=== PATIENT | female | born 1995 | race Caucasian/White ===

== ENCOUNTER 2022-03-30 04:34 | Inpatient (IN) ==
[2022-03-30] MEDS ORDERED: OXYTOCIN 30 UNITS/500 ML BAG IV PRN ×3 (05:05→14:42)
[2022-03-30 05:43] LABS: Hematocrit (blood only) 33.8 % (37-47); Hemoglobin 10.9 g/dL (12.0-16.0); Mean Corpuscular Hemoglobin 28.5 pg (25-34); Mean Corpuscular Hgb Conc 32.2 g/dL (32-36); Mean Corpuscular Volume 88.3 fL (80-100); Mean Platelet Volume 12.2 fL (7.4-10.4); Platelet Count 166 K/uL (130-400); RDW Coefficient of Variation 14.3 % (11.5-14.5); RDW Standard Deviation 46.1 fL (36.4-46.3); Red Blood Count 3.83 M/uL (4.2-5.4); White Blood Count 9.23 K/uL (4.8-10.8)
[2022-03-30] MEDS: LACTATED RINGER'S 1,000 ML IV PRN ×3 (05:51→11:52)
[2022-03-30] MEDS ORDERED: ePHEDrine sulfate 50 MG/ML AMP ONE (06:45)
[2022-03-30] MEDS ORDERED: SODIUM CHLORIDE 0.9% INJ 10 ML VIAL ONE (06:46)
[2022-03-30] MEDS ORDERED: BUPIVACAINE 0.25% 30 ML VIAL ONE (06:46)
[2022-03-30] MEDS ORDERED: fentaNYL 2MCG/ML ROPIVACAINE 1.25MG/ML 100 ML BAG EPI ONE (06:46)
[2022-03-30] MEDS ORDERED: fentaNYL citrate 100 MCG/2 ML VIAL ONE (06:46)
[2022-03-30] MEDS ORDERED: NALBUPHINE HCL INJ 10 MG/ML AMP IV PRN (06:59)
[2022-03-30] MEDS ORDERED: ePHEDrine sulfate 50 MG/ML AMP IV PRN (06:59)
[2022-03-30] MEDS ORDERED: NALOXONE HCL 1 MG in SODIUM CHLORIDE 0.9% 1000ML 1,000 ML IV PRN (06:59)
[2022-03-30] MEDS ORDERED: fentaNYL 2MCG/ML ROPIVACAINE 1.25MG/ML 100 ML BAG EPI PRN (06:59)
[2022-03-30] MEDS ORDERED: NALOXONE HCL 0.4 MG/1 ML VIAL/CARP IV PRN (06:59)
[2022-03-30] MEDS ORDERED: diphenhydrAMINE 50 MG/ML VIAL IV PRN (06:59)
[2022-03-30] MEDS ORDERED: ONDANSETRON INJ 2 MG/ML 2 ML VIAL IV PRN (06:59)
--- NOTE | 2022-03-30 07:01 | Anesthesiology Consultation ---
Date of Service March 30, 2022 Assessment & Plan (1) Encounter for pre-operative examination: Chart Review Chart Review: Patient NOT seen in Pre Admission Testing and Acceptable Risk for Labor Epidural Consults Requested none History Height/Weight Height: 5 ft 9 in Weight: 87.997 kg Allergies Allergy/AdvReac Type Severity Reaction Status Date / Time No Known Allergies Allergy Verified 03/29/22 11:32 Medications Home Medications Medication Instructions Recorded Confirmed Last Taken Saccharomyces boulardii [Daily PO 12/11/20 03/29/22 Unknown Probiotic (S. boulardii)] biotin PO 12/11/20 03/29/22 Unknown cyanocobalamin (vitamin B-12) PO 12/11/20 03/29/22 Unknown ferrous sulfate PO 12/11/20 03/29/22 Unknown garlic PO 12/11/20 03/29/22 Unknown defwig90-tgtf fum-folic ac-om3 PO 12/11/20 03/29/22 Unknown [Daily ] Active Medications Generic Name Dose Route Start Last Admin Trade Name Freq PRN Reason Stop Dose Admin Oxytocin 30 units in 500 mls @ 3 mls/hr 03/30/22 05:05 03/30/22 06:30 Pitocin IV 04/01/22 05:04 0.18 units/hr .Q24H PRN 3 mls/hr Labor Induction/Augmentation Titration Protocol 0.18 UNITS/HR Lactated Ringer's 1,000 mls @ 125 mls/hr 03/30/22 05:05 03/30/22 06:30 Lr IV 04/01/22 05:04 999 mls/hr .Q8H PRN Infusion L&D Protocol Protocol Past Medical History Medical History (Updated 03/30/22 @ 07:01 by Billy Lay MD) Encounter for gynecological examination without abnormal finding Exercise / Class Metabolic Activity II 4-5 Yardwork/Stairs/Walk up hill Past Family History Family History Grandmother Breast cancer maternal great grandmother Denies family history of Ovarian cancer Prostate cancer Colorectal cancer Uterine cancer Past Surgical History Surgical History H/O laparoscopy diagnostic Hx of cholecystectomy Hx of colonoscopy S/P wisdom tooth extraction Past Anesthesia History No Hx of Anesthesia Complications and No Family Hx of Anesthesia Complications History of PONV No Hx of PONV and No Hx of Motion Sickness Social History Smoking Status: Never smoker Do You Dip or Chew Tobacco: No Hx Alcohol Use: No Hx Substance Use: No substance use type: does not use Physical Exam Vital Signs Last Vital Signs Temp 36.8 C 03/30/22 05:11 Pulse 71 03/30/22 06:04 Resp 16 03/30/22 05:15 BP 123/85 03/30/22 06:04 Testing Laboratory Results 03/30/22 05:25
--- NOTE | 2022-03-30 07:23 | History & Physical Report ---
Date of Service March 30, 2022 Assessment & Plan (1) Post-dates : (2) PROM (premature rupture of membranes): Plan: Pt has been admitted. Pitocin infusing, now with epidural and getting more comfortable. fhts categ 1. will reeval cx when she is comfortable. Admission and Anticipated Discharge Date Admission Date: March 30, 2022 History of Present Illness Chief Complaint: leaking clear fluid since 3am Primary Care Provider: Cornell Johnson 26yo at 41+wks ega presents to L&D with leaking fluid, no significant ctx. Gross srom on arrival. Cx 2cm. +FM. No vb or regular ctx. Counseled to start pitocin but wanted to walk first. Just got her epidural, and waiting to feel more comfortable. PNC uncomplicated. PNL rh pos, ri, gbs neg, covid test neg OBH: g1 GYNH: nl paps Allergies Allergy/AdvReac Type Severity Reaction Status Date / Time No Known Allergies Allergy Verified 03/29/22 11:32 Home Medications Medication Instructions Recorded Confirmed Type Saccharomyces boulardii [Daily PO 12/11/20 03/29/22 History Probiotic (S. boulardii)] biotin PO 12/11/20 03/29/22 History cyanocobalamin (vitamin B-12) PO 12/11/20 03/29/22 History ferrous sulfate PO 12/11/20 03/29/22 History garlic PO 12/11/20 03/29/22 History osdeyt61-ydfi fum-folic ac-om3 PO 12/11/20 03/29/22 History [Daily ] prenat.vits,justen,xjb-tayv-zeoqq 1 tab PO DAILY 03/30/22 03/30/22 History Patient History Medical History (Updated 03/30/22 @ 07:23 by Marie Davidson MD, FACOG) Encounter for gynecological examination without abnormal finding Surgical History H/O laparoscopy diagnostic Hx of cholecystectomy Hx of colonoscopy S/P wisdom tooth extraction Family History Grandmother Breast cancer maternal great grandmother Denies family history of Ovarian cancer Prostate cancer Colorectal cancer Uterine cancer Social History (Updated 08/05/21 @ 13:22 by Blanca Evans RN) Smoking Status: Never smoker Second Hand Exposure: No; Do You Dip or Chew Tobacco: No; Tobacco Cessation Education Requested by Patient: No Hx Alcohol Use: No Hx Substance Use: No Preferred Language: Greenlandic Communication Ability: Effective Visual Impairment: No Limitations Hearing Ability: Normal Development Executive Required: No Beliefs That Will Affect Care: None marital status: marital status details: Anderson Reese (40) [phone] cell [phone] ext 1200 [place] Current Living Situation: Spouse Current Living Situation Comment: Lives with and 2 dogs current occupational status: employed 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 Other Information That Helps Us Care for You: No Feels Safe at Home: Yes Safety Concerns: Feels Safe At This Time Assistive Devices: None Review of Systems as per Subjective / HPI Physical Exam Constitutional: WD/WN, vitals as above Respiratory: normal respiratory effort, lungs clear to auscultation Cardiovascular: Rate/Rhythm: regular rate and regular rhythm Gastrointestinal (Abdomen): soft gravid nt efw 7-8# Musculoskeletal: no edema nontender calves Neurologic: grossly normal Psychiatric: A+Ox3, euthymic affect Genitourinary: OB Exam Monitor Tracing: + external FHT monitor used, + external uterine monitor used (q2 pit at 3), + category I and + normal FHT variability Results & Data ([facility]) Vital Signs (Past 12 Hours) Vital Signs Temp Pulse Resp BP Pulse Ox 03/30/22 07:16 80 100 03/30/22 07:11 83 100 03/30/22 07:06 81 100 03/30/22 06:04 71 123/85 03/30/22 05:15 16 03/30/22 05:11 98.3 F 71 16 124/77 03/30/22 04:57 71 124/77 Coding Level of Care Code None Diagnoses Post-dates O48.0 PROM (premature rupture of membranes) O42.90
[2022-03-30] MEDS ORDERED: NURSING L&D Epidural Breakthrough Pain Update ONE (08:14)
--- NOTE | 2022-03-30 13:11 | Labor Progress Brief Note ---
Date of Service March 30, 2022 Subjective Comfortable w/ epidural, some right sided pain w/ ctx Assessment & Plan (1) Post-dates : (2) PROM (premature rupture of membranes): Plan: 26 yo G1 at 41 1/7 wga admitted w/ prom vss fetus cat 1 labor - complete, will try some pushes to see if effective, if not can labor down gbs neg epidural in place Admission and Anticipated Discharge Date Admission Date: March 30, 2022 Physical Exam Genitourinary: Manual OB Exam: + cervical dilation 10 cm, + cervical effacement 100% and + station + 2 OB Exam Monitor Tracing: + external FHT monitor used, + external uterine monitor used and + category I Results & Data ([facility]) Vital Signs (Past 12 Hours) Vital Signs Temp Pulse Resp BP Pulse Ox 03/30/22 13:06 91 H 87 L 03/30/22 13:04 88 89 L 03/30/22 13:01 88 98 03/30/22 12:58 101 H 90 03/30/22 12:56 81 78 L 03/30/22 12:52 86 87 L 03/30/22 12:51 85 97 03/30/22 12:50 94 H 139/73 03/30/22 12:46 92 H 94 03/30/22 12:42 92 H 92 03/30/22 12:41 93 H 97 03/30/22 12:38 98.8 F 18 03/30/22 12:36 85 76 L 03/30/22 12:31 97 H 95 03/30/22 12:30 87 84 L 03/30/22 12:26 83 98 03/30/22 12:23 98 H 92 03/30/22 12:21 88 131/80 98 03/30/22 12:16 80 96 03/30/22 12:11 74 98 03/30/22 12:06 75 96 03/30/22 12:01 72 98 03/30/22 11:56 80 97 03/30/22 11:51 86 97 03/30/22 11:50 88 108/61 03/30/22 11:46 84 97 03/30/22 11:42 75 94 03/30/22 11:41 72 95 03/30/22 11:37 73 94 03/30/22 11:36 75 94 03/30/22 11:32 75 94 03/30/22 11:31 74 95 03/30/22 11:27 76 94 03/30/22 11:26 72 95 05 11:21 74 100/56 L 94 03/30/22 11:16 71 95 03/30/22 11:11 72 96 03/30/22 11:06 86 97 03/30/22 11:01 73 96 03/30/22 10:56 75 97 03/30/22 10:51 76 97 03/30/22 10:50 75 120/58 L 03/30/22 10:46 76 97 03/30/22 10:45 98.4 F 18 03/30/22 10:42 80 144/81 H 03/30/22 10:41 77 98 03/30/22 10:36 71 97 03/30/22 10:31 68 97 03/30/22 10:27 72 115/72 03/30/22 10:26 75 99 03/30/22 10:21 68 95 03/30/22 10:16 69 95 03/30/22 10:11 69 116/70 96 03/30/22 10:06 68 96 03/30/22 10:05 98.8 F 16 03/30/22 10:01 68 97 03/30/22 09:57 68 111/64 03/30/22 09:56 68 96 03/30/22 09:51 71 98 03/30/22 09:46 70 98 03/30/22 09:45 70 94 03/30/22 09:42 68 113/68 03/30/22 09:41 70 97 03/30/22 09:36 69 96 03/30/22 09:31 72 95 03/30/22 09:26 75 101/56 L 95 03/30/22 09:21 76 95 03/30/22 09:16 85 98 03/30/22 09:14 76 94 03/30/22 09:11 75 103/58 L 96 03/30/22 09:06 73 95 03/30/22 09:05 98.8 F 16 03/30/22 09:01 74 95 03/30/22 08:57 80 107/56 L 03/30/22 08:56 89 96 03/30/22 08:51 80 95 05/03/22 08:46 74 96 03/30/22 08:43 72 108/62 03/30/22 08:41 88 98 03/30/22 08:36 71 97 03/30/22 08:31 70 99 03/30/22 08:27 72 118/71 03/30/22 08:26 72 99 03/30/22 08:21 69 99 03/30/22 08:16 64 96 03/30/22 08:12 66 126/76 03/30/22 08:11 66 97 03/30/22 08:10 98.2 F 18 03/30/22 08:06 71 98 03/30/22 08:01 66 97 03/30/22 07:57 69 121/75 03/30/22 07:56 70 18 98 03/30/22 07:51 69 99 03/30/22 07:46 74 99 03/30/22 07:41 73 132/89 98 03/30/22 07:37 71 133/87 03/30/22 07:36 71 18 100 03/30/22 07:31 79 130/79 100 03/30/22 07:26 81 100 03/30/22 07:25 78 121/71 03/30/22 07:21 79 100 03/30/22 07:20 77 140/97 03/30/22 07:16 80 100 03/30/22 07:11 83 100 03/30/22 07:08 98.2 F 18 03/30/22 07:06 81 100 03/30/22 06:04 71 123/85 03/30/22 05:15 16 03/30/22 05:11 98.3 F 71 16 124/77 03/30/22 04:57 71 124/77 Coding Level of Care Code None Diagnoses Post-dates O48.0 PROM (premature rupture of membranes) O42.90
--- NOTE | 2022-03-30 14:15 | Delivery Summary ---
Vaginal Delivery Summary Date of Service March 30, 2022 Vaginal Delivery Summary (vaginal and right labial laceration repair) PREOPERATIVE DIAGNOSIS: 1. Single intrauterine at 41 1/7 wga 2. Premature rupture of membranes POSTOPERATIVE DIAGNOSIS: 1. Single intrauterine at 41 1/7 wga 2. Premature rupture of membranes 3. Delivered PROCEDURE: 1. Normal spontaneous vaginal delivery. SURGEON: Charla Hagan MD ANESTHESIA: Epidural. ESTIMATED BLOOD LOSS: 400 mL FLUIDS: Continuous LR. URINE OUTPUT: Not measured COMPLICATIONS: None. CONDITION: Stable. INDICATIONS: 26 y/o G1 at 41 1/7 wga presented early this AM after rupture of membranes. She was found to be unchanged from yesterday's exam in office and wanted to walk to see if would progress but did not. She received an epidural for pain control and pitocin was started for augmentation. She progressed well to complete and desired to push. FINDINGS: A viable male infant, weight pending with Apgars of 9 and 10 at 1 and 5 minutes respectively. SPECIMEN: Cord blood, placenta OPERATIVE REPORT: The patient progressed to 10 cm, 100% effaced and +2 station, pushed over intact perineum with anesthesia to deliver a viable male infant, weight and Apgars as above. Head of delivered in CARMEN position. No nuchal cord was present. Body and shoulders were delivered without difficulty. was delivered to maternal abdomen and nursing staff. Delayed cord clamping was performed for 60 seconds. Cord was clamped and cut. Cord blood was obtained. Placenta delivered spontaneously intact with 3-vessel cord. IV oxytocin and fundal massage were given for excellent hemostasis. Vagina, cervix, perineum, and placenta were inspected. A vaginal laceration and right labial laceration were repaired using 3-0 and 4-0 vicryl respectively in the usual fashion. Sponge and needle counts correct x2. No sponges were left behind. Mother and stable in immediate period. [facility] Vaginal Delivery Charge Vaginal Delivery Codes: 88362 global code for the antepartum, delivery, and post- Delivery Type Details: (vaginal and right labial laceration repair)
--- NOTE | 2022-03-30 14:31 | Anesthesia Procedure Note ---
Date of Service March 30, 2022 Anesthesia Post Epidural Note Vital Signs Vital Signs: Temp Pulse Resp BP Pulse Ox 37.1 C 90 18 130/67 97 03/30/22 12:38 03/30/22 14:20 03/30/22 12:38 03/30/22 14:20 03/30/22 14:16 Pain Intensity Lower Abdomen: Pain Intensity: 0 Notes Mental Status: alert / awake / arousable and participated in evaluation Patient Amnestic to Procedure: No Nausea / Vomiting: adequately controlled Pain: adequately controlled Airway Patency, RR, SpO2: stable & adequate BP & HR: stable & adequate Hydration State: stable & adequate Neuraxial Anesthesia: was administered and sensory block is resolving Anesthetic Complications: no major complications apparent and Pt Satisfied with anesthetic care Epidural: Removed without complications and With tip intact
[2022-03-30] MEDS ORDERED: DIPHTHERIA/TETANUS/PERTUSSIS 0.5 ML SYR/VIAL IM ONE (14:42)
[2022-03-30] MEDS ORDERED: HYDROCORTISONE ACETATE 25 MG SUPP PR PRN (14:42)
[2022-03-30] MEDS ORDERED: BENZOCAINE 20% AER SPR 82.5 GM CAN EXT PRN (14:42)
[2022-03-30] MEDS ORDERED: ACETAMINOPHEN 325 MG TAB PO PRN (14:42)
[2022-03-30] MEDS ORDERED: bisacodyL 10 MG SUPP PR PRN (14:42)
[2022-03-30] MEDS: IBUPROFEN 600 MG TAB PO PRN ×2 (16:07→21:29)
[2022-03-30] MEDS: DOCUSATE SODIUM 100 MG CAP PO SCH (21:29)
[2022-03-31] MEDS: IBUPROFEN 600 MG TAB PO PRN ×4 (01:40→17:58)
--- NOTE | 2022-03-31 07:29 | Obstetrical Progress Note ---
Date of Service March 31, 2022 Assessment & Plan (1) Encounter for care and examination after delivery: 26 yo PP1 from , doing well -Meeting all pp milestones -O+/rubella immune/ -f/u 6 weeks for appt, pt considering d/c home after 24 hrs and ok to do so if desires Subjective Ambulation: ambulating normally Voiding: no voiding problems Passing Gas:: Yes Diet Tolerance:: regular diet Lochia:: Small Feeding Type:: breast feeding Pain well managed with medication Review of Systems Denies fevers, chills, n/v, VANEGAS, CP, SOB Physical Exam Constitutional WD/WN, vitals as above no acute distress Respiratory normal respiratory effort, lungs clear to auscultation Cardiovascular RRR, no murmur, no edema Gastrointestinal (Abdomen) Percussion/Palpation: abdomen soft; abdomen nontender fundus firm at umbilicus and NT Musculoskeletal BLE symmetric, nonerythematous, nontender Results & Data ([facility]) Vital Signs (Past 12 Hours) Vital Signs Temp Pulse Resp BP Pulse Ox 03/31/22 03:05 97.9 F 66 18 113/67 98 03/30/22 23:15 98.4 F 79 18 113/69 99
[2022-03-31] MEDS ORDERED: FERROUS SULFATE 325 MG TAB PO SCH (08:00)
[2022-03-31] MEDS: DOCUSATE SODIUM 100 MG CAP PO SCH (08:00)
[2022-03-31] MEDS ORDERED: PRENATAL VITAMIN 1 TAB PO SCH (08:00)
[2022-03-31] MEDS ORDERED: bisacodyL 5 MG TABEC PO SCH (20:00)
== END 2022-03-31 18:45 | disposition home or self-care (01) | DRG 807 ==
LOC: OPB 04:34 → 4S1 04:37 → 4E2 16:35
DX: O42.913 Preterm premature rupture of membranes, unspecified as to length of time between rupture and onset of labor, third trimester; Z37.0 Single live birth; O48.0 Post-term pregnancy; Z3A.41 41 weeks gestation of pregnancy; O70.0 First degree perineal laceration during delivery; Z90.49 Acquired absence of other specified parts of digestive tract

== ENCOUNTER 2023-06-29 16:29 | Inpatient (IN) ==
[2023-06-29] MEDS ORDERED: LIDOCAINE 1% LOCAL 20 ML VIAL INFIL PRN (18:30)
[2023-06-29] MEDS ORDERED: OXYTOCIN 30 UNITS/500 ML BAG IV PRN ×3 (18:30→23:24)
--- NOTE | 2023-06-29 18:33 | History & Physical Report ---
Date of Service June 29, 2023 Assessment & Plan (1) History of shoulder dystocia in prior : (2) with 39 completed weeks gestation: Plan Patient gives a very good story for rom, just cannot confirm with certainty although do not palpate membranes. 39 5/7. Hx of shoulder dystocia. Lives far away. Patient would like to stay and augment labor. The cervix has changed from the last time she was in the office and is very favorable. She is agreeable to pitocin so will admit and augment. gbs negative. anticipate . History of Present Illness Chief Complaint: lof Primary Care Provider: Cornell Johnson Patient is a 27yowf with iup at 39 5/7 weeks who presents to labor and delivery for lof. Notes had a large gush of fluid at 2pm, had sex last night. Notes no bleeding. Has had intermittent little gushes. Notes when she got out of the wheelchair, pad was wet and ran down leg. Notes pressure and intermittent contractions. +fm Protocols Hx Shoulder Dystocia *baby 9lbs 10oz at 41wks *consider growth US at 36wks growth at 36 weeks in 64% pushed for one hour and dystocia lasted less than one minute per patient. operative note reviewed and shoulder dystocia not mentioned in the note OB Labs: Blood Type O Positive 01/04/23 Antibody Screen NEGATIVE 01/04/23 Hemoglobin 9.5 g/dl (12.0-16.0) L 04/08/23 Hematocrit 29.9 % (37.0-47.0) L 04/08/23 Mean Corpuscular Volume 88.4 fL (80.0-100.0) 01/04/23 Platelet Count 183 K/uL (130-400) 01/04/23 Rubella IgG Antibody Immune (Immune) 01/04/23 Rapid Plasma Reagin Nonreactive (Nonreactive) 04/08/23 Hepatitis B Surface Antigen Neg (Neg) 08/18/21 Hepatitis B Surface Antigen. NON-REACTIVE (NON-REACTIVE) 01/04/23 A Hepatitis C Antibody (EIA) NON-REACTIVE (NON-REACTIVE) 01/04/23 HIV (1&2) Ab and P24 Ag, 4th Gener Neg (Neg) 08/18/21 HIV (1&2) Ag and Ab Confirmation NON-REACTIVE (NON-REACTIVE) 01/04/23 Glucose 1 Hour 50 gm Load 93 mg/dl (70-130) 04/08/23 Maternal Serum Alpha Fetoprotein 31.0 ng/mL 01/18/23 OB Optional Labs: Chlamydia trachomatis RNA Not Detected (NotDetected) 12/21/22 Neisseria gonorrhoeae RNA Not Detected (NotDetected) 12/21/22 Alpha Fetoprotein Triple Screen SEE NOTE 01/18/23 Labs Reviewed: low risk panorama--akh cf/sma neg--akh neg afp--akh 28 week labs reviewed--mln GBS-negative--mln Allergies Allergy/AdvReac Type Severity Reaction Status Date / Time No Known Allergies Allergy Verified 06/29/23 17:14 Home Medications Medication Instructions Recorded Confirmed Type prenat.vits,justen,kec-ebcn-uqzfv 1 tab PO DAILY 03/30/22 06/29/23 History Patient History Medical History (Updated 06/29/23 @ 18:39 by Bernice Jacobson MD, FACOG) Encounter for gynecological examination without abnormal finding Patient denies significant medical history Surgical History H/O laparoscopy diagnostic Hx of cholecystectomy Hx of colonoscopy S/P wisdom tooth extraction Family History Grandmother Breast cancer Denies family history of Ovarian cancer Prostate cancer Colorectal cancer Uterine cancer Social History Smoking Status: Never smoker Second Hand Exposure: No; Do You Dip or Chew Tobacco: No; Hx Alcohol Use: No Hx Substance Use: No Preferred Language: Stateless Communication Ability: Effective Visual Impairment: No Limitations Hearing Ability: Normal Bliss Press Operator Required: No Beliefs That Will Affect Care: None marital status: marital status details: Anderson Reese ([phone] cell [phone] ext 1200 [employer] [place] Current Living Situation: Spouse and Family Current Living Situation Comment: and son current occupational status: unemployed current occupation: homemaker Other Information That Helps Us Care for You: No Feels Safe at Home: Yes Safety Concerns: Feels Safe At This Time Assistive Devices: None OB History Past Pregnancies Del. Date GA wks Lbr Lgth wt Sex Type del Anes Place Del Prov ? Comment 03/30/22 41 9lbs 10.7oz M E pidural [facility] Dr Hagan No [facility] History noncontributory Physical Exam Constitutional: WD/WN, vitals as above Gastrointestinal (Abdomen): soft, gravid, nt Psychiatric: A+Ox3, euthymic affect Genitourinary: cx--3-4/50/-2, cannot palpate membranes toco--intermittent contractions efm--110s with mod variability, accels to 160s, no decels sse x 2--neg pool, no active fluid from the cervix, nitrazine equiv., unable to document ferning on either slide Results & Data Vital Signs (Past 12 Hours) Vital Signs Temp Pulse Resp BP 06/29/23 16:48 36.7 C 20 06/29/23 16:46 73 125/75 Coding Level of Care Code None Diagnoses History of shoulder dystocia in prior Z87.59 with 39 completed weeks gestation Z3A.39
[2023-06-29 19:14] LABS: Hemoglobin 9.1 g/dl (12.0-16.0); Mean Corpuscular Hgb Conc 30.3 g/dL (32.0-36.0); Mean Corpuscular Volume 79.2 fL (80.0-100.0); Mean Platelet Volume 11.5 fL (9.4-12.4); Platelet Count 157 K/uL (130-400); RDW Coefficient of Variation 16.4 % (11.5-14.5); RDW Standard Deviation 46.7 fL (36.4-46.3); Red Blood Count 3.79 M/uL (4.20-5.40); White Blood Count 6.86 K/ul (4.8-10.8)
[2023-06-29] MEDS: LACTATED RINGER'S 1,000 ML IV PRN ×2 (19:29→21:28)
[2023-06-29] MEDS ORDERED: fentaNYL citrate PF 100 MCG/2 ML VIAL ONE (20:13)
[2023-06-29] MEDS ORDERED: ePHEDrine sulfate 50 MG/ML AMP ONE (20:13)
[2023-06-29] MEDS ORDERED: SODIUM CHLORIDE 0.9% PF INJ 10 ML VIAL ONE (20:14)
[2023-06-29] MEDS ORDERED: BUPIVACAINE 0.25% PF 30 ML VIAL ONE (20:14)
[2023-06-29] MEDS ORDERED: fentaNYL 2MCG/ML ROPIVACAINE 1.25MG/ML 100 ML BAG EPI ONE (20:14)
[2023-06-29] MEDS ORDERED: LIDOCAINE 2%/EPINEPHRINE 1:200,000 20 ML PF ONE (20:14)
[2023-06-29] MEDS ORDERED: fentaNYL 2MCG/ML ROPIVACAINE 1.25MG/ML 100 ML BAG EPI PRN (20:32)
[2023-06-29] MEDS ORDERED: LIDOCAINE 2% MPF LOCAL 5 ML VIAL EPI PRN (20:32)
[2023-06-29] MEDS ORDERED: LIDOCAINE 2%/EPINEPHRINE 1:200,000 20 ML PF EPI STA (20:32)
[2023-06-29] MEDS ORDERED: NALBUPHINE HCL INJ 10 MG/ML AMP IV PRN (20:32)
[2023-06-29] MEDS ORDERED: ePHEDrine sulfate 50 MG/ML AMP IV PRN (20:32)
[2023-06-29] MEDS ORDERED: fentaNYL citrate PF 100 MCG/2 ML VIAL EPI STA (20:32)
[2023-06-29] MEDS ORDERED: SODIUM CHLORIDE 0.9% PF INJ 10 ML VIAL EPI PRN (20:32)
[2023-06-29] MEDS ORDERED: NALOXONE HCL 1 MG in SODIUM CHLORIDE 0.9% 1000ML 1,000 ML IV PRN (20:32)
[2023-06-29] MEDS ORDERED: BUPIVACAINE 0.25% PF 30 ML VIAL EPI PRN (20:32)
[2023-06-29] MEDS ORDERED: ROPIVACAINE 0.5% PF 5 MG/ML 20 ML VIAL EPI PRN (20:32)
[2023-06-29] MEDS ORDERED: SODIUM CHLORIDE 0.9% PF INJ 10 ML VIAL EPI STA (20:32)
[2023-06-29] MEDS ORDERED: fentaNYL citrate PF 100 MCG/2 ML VIAL EPI PRN (20:32)
[2023-06-29] MEDS ORDERED: diphenhydrAMINE 50 MG/ML VIAL IV PRN (20:32)
[2023-06-29] MEDS ORDERED: NALOXONE HCL 0.4 MG/1 ML VIAL/CARP IV PRN (20:32)
[2023-06-29] MEDS ORDERED: BUPIVACAINE 0.25% PF 30 ML VIAL EPI STA (20:32)
--- NOTE | 2023-06-29 20:32 | Anesthesiology Consultation ---
Date of Service June 29, 2023 Assessment & Plan ASA ASA2 Proposed Anesthesia Anesthesia Type: Labor Epidural Risk / Benefits Reviewed With: PT / POA / Parent / Guardian, Accepts Plan and Informed Consent Obtained History Height/Weight Height: 5 ft 9 in Weight: 81.647 kg Allergies Allergy/AdvReac Type Severity Reaction Status Date / Time No Known Allergies Allergy Verified 06/29/23 17:14 Medications Home Medications Medication Instructions Recorded Confirmed Last Taken prenat.vits,justen,yie-gxgv-cvucr 1 tab PO DAILY 03/30/22 06/29/23 06/25/23 20:00 Active Medications Generic Name Dose Route Start Last Admin Trade Name Freq PRN Reason Stop Dose Admin Oxytocin 30 units in 500 mls @ 4 mls/hr 06/29/23 18:30 06/29/23 20:03 Pitocin IV 07/01/23 18:29 0.24 units/hr .Q24H PRN 4 mls/hr Labor Induction/Augmentation Titration Protocol 0.24 UNITS/HR Lactated Ringer's 1,000 mls @ 125 mls/hr 06/29/23 18:30 06/29/23 20:55 Lr IV 07/01/23 18:29 125 mls/hr .Q8H PRN Infusion L&D Protocol Protocol Past Medical History Medical History Encounter for gynecological examination without abnormal finding Patient denies significant medical history Exercise / Class Metabolic Activity II 4-5 Yardwork/Stairs/Walk up hill Past Family History Family History Grandmother Breast cancer maternal great grandmother Denies family history of Ovarian cancer Prostate cancer Colorectal cancer Uterine cancer Past Surgical History Surgical History H/O laparoscopy diagnostic Hx of cholecystectomy Hx of colonoscopy S/P wisdom tooth extraction Past Anesthesia History No Hx of Anesthesia Complications and No Family Hx of Anesthesia Complications History of PONV No Hx of PONV and No Hx of Motion Sickness Social History Smoking Status: Never smoker Do You Dip or Chew Tobacco: No Hx Alcohol Use: No Hx Substance Use: No substance use type: does not use Review of Systems denies fever/cough/ colds/ chest pain/ SOB/ ANUM denies ANUM Physical Exam Vital Signs Last Vital Signs Temp 36.9 C 06/29/23 19:00 Pulse 78 06/29/23 21:02 Resp 18 06/29/23 20:55 BP 107/53 L 06/29/23 21:00 Pulse Ox 100 06/29/23 21:02 ENMT Mouth: no TMJ abnormality and no dentition abnormality Thyromental Distance: > or= 3.5 Finger Breadths Mallampati Class: II Neck neck extension not limited Respiratory normal respiratory effort; no respiratory distress Auscultation: lungs clear to auscultation bilaterally Cardiovascular Rate/Rhythm: regular rate and regular rhythm Neurologic moves all extremities Psychiatric Orientation: alert and oriented x 3 Testing Laboratory Results 06/29/23 18:59
--- NOTE | 2023-06-29 21:28 | Labor Progress Brief Note ---
Date of Service June 29, 2023 Subjective comfortable after epidural Assessment & Plan (1) with 39 completed weeks gestation: Plan making progress. baseline lower but has been so since admission. Fetus category one with spon accels and scalp stim. Continue current management. anticipate . Admission and Anticipated Discharge Date Admission Date: June 29, 2023 Physical Exam Physical Exam: cx--5/90/-2 arom of forebag, clear toco--q2-4min efm--100-110 baseline since admission, accels to 150s, +scalp stim, no decels maternal pulse in the mid 70s Results & Data Vital Signs (Past 12 Hours) Vital Signs Temp Pulse Resp BP Pulse Ox 06/29/23 16:48 36.7 C 20 06/29/23 21:22 97 06/29/23 21:22 72 06/29/23 21:17 97 06/29/23 21:17 71 06/29/23 21:16 73 06/29/23 21:16 111/58 L 06/29/23 21:12 97 06/29/23 21:12 73 06/29/23 21:07 97 06/29/23 21:07 75 06/29/23 20:55 18 06/29/23 20:55 18 06/29/23 21:02 100 06/29/23 21:02 78 06/29/23 21:00 75 06/29/23 21:00 107/53 L 06/29/23 20:58 71 06/29/23 20:58 105/58 L 06/29/23 20:57 99 06/29/23 20:57 77 06/29/23 20:56 76 06/29/23 20:56 110/58 L 06/29/23 20:54 76 06/29/23 20:54 103/56 L 06/29/23 20:52 99 06/29/23 20:52 74 06/29/23 20:52 107/56 L 06/29/23 20:50 75 06/29/23 20:51 80 06/29/23 20:50 106/57 L 06/29/23 20:51 109/59 L 06/29/23 20:47 100 06/29/23 20:47 73 06/29/23 20:47 121/64 06/29/23 20:42 100 06/29/23 20:42 72 06/29/23 20:37 98 06/29/23 20:37 82 06/29/23 20:32 98 06/29/23 20:32 71 06/29/23 20:27 97 06/29/23 20:27 75 06/29/23 20:22 98 06/29/23 20:22 75 06/29/23 20:17 98 06/29/23 20:17 79 06/29/23 20:04 72 06/29/23 20:04 129/72 06/29/23 19:00 18 06/29/23 19:00 36.9 C 18 06/29/23 19:06 71 06/29/23 19:06 108/59 L 06/29/23 16:46 73 125/75 Coding Level of Care Code None Diagnoses with 39 completed weeks gestation Z3A.39
--- NOTE | 2023-06-29 22:05 | Labor Progress Brief Note ---
Date of Service June 29, 2023 Subjective comfortable Assessment & Plan (1) with 39 completed weeks gestation: Plan making progress, low baseline, fse placed to be sure monitoring the fetus . Overall , other than the low baseline, the fetus has good /mod variability, and spontaneous accels . Believe that this baby is well oxygenated given this. Do not see a reason to make any changes at this time. Will continue to augment, change positions and monitor closely. As long as continued change and no significant other concern in the fht, continue. Patient aware. Admission and Anticipated Discharge Date Admission Date: June 29, 2023 Physical Exam Physical Exam: cx--5-6/100/-2 toco--q2-4, pit at 4 efm--baseline 95-105, moderate variability, spontaneous accels to 150s, +scalp stim FSE placed maternal pulse continues in the 70s Results & Data Vital Signs (Past 12 Hours) Vital Signs Temp Pulse Resp BP Pulse Ox 06/29/23 16:48 36.7 C 20 06/29/23 21:57 98 06/29/23 21:57 73 06/29/23 21:52 98 06/29/23 21:52 92 H 06/29/23 21:47 98 06/29/23 21:47 71 06/29/23 21:30 18 06/29/23 21:30 18 06/29/23 21:46 75 06/29/23 21:46 116/62 06/29/23 21:42 97 06/29/23 21:42 70 06/29/23 21:37 97 06/29/23 21:37 80 06/29/23 21:32 98 06/29/23 21:32 86 06/29/23 21:32 80 06/29/23 21:32 123/61 06/29/23 21:24 18 06/29/23 21:24 36.7 C 18 06/29/23 21:27 98 06/29/23 21:27 77 06/29/23 21:22 97 06/29/23 21:22 72 06/29/23 21:17 97 06/29/23 21:17 71 06/29/23 21:16 73 06/29/23 21:16 111/58 L 06/29/23 21:12 97 06/29/23 21:12 73 06/29/23 21:07 97 06/29/23 21:07 75 06/29/23 20:55 18 06/29/23 20:55 18 06/29/23 21:02 100 06/29/23 21:02 78 06/29/23 21:00 75 06/29/23 21:00 107/53 L 06/29/23 20:58 71 06/29/23 20:58 105/58 L 06/29/23 20:57 99 06/29/23 20:57 77 06/29/23 20:56 76 06/29/23 20:56 110/58 L 06/29/23 20:54 76 06/29/23 20:54 103/56 L 06/29/23 20:52 99 06/29/23 20:52 74 06/29/23 20:52 107/56 L 06/29/23 20:50 75 06/29/23 20:51 80 06/29/23 20:50 106/57 L 06/29/23 20:51 109/59 L 06/29/23 20:47 100 06/29/23 20:47 73 06/29/23 20:47 121/64 06/29/23 20:42 100 06/29/23 20:42 72 06/29/23 20:37 98 06/29/23 20:37 82 06/29/23 20:32 98 06/29/23 20:32 71 06/29/23 20:27 97 06/29/23 20:27 75 06/29/23 20:22 98 06/29/23 20:22 75 06/29/23 20:17 98 06/29/23 20:17 79 06/29/23 20:04 72 06/29/23 20:04 129/72 06/29/23 19:00 18 06/29/23 19:00 36.9 C 18 06/29/23 19:06 71 06/29/23 19:06 108/59 L 06/29/23 16:46 73 125/75 Coding Level of Care Code None Diagnoses with 39 completed weeks gestation [id number].39
[2023-06-29] MEDS ORDERED: BENZOCAINE 20% SPRY 85 APPLN/85 GM CAN EXT PRN (23:24)
[2023-06-29] MEDS ORDERED: bisacodyL 10 MG SUPP PR PRN (23:24)
[2023-06-29] MEDS ORDERED: HYDROCORTISONE ACETATE 25 MG SUPP PR PRN (23:24)
[2023-06-29] MEDS ORDERED: DIPHTHERIA/TETANUS/PERTUSSIS Vaccine (Tdap, Age 7+yrs) 0.5mL SYR/VL IM ONE (23:24)
[2023-06-29] MEDS ORDERED: oxyCODONE/ACETAMINOPHEN 5mg/325mg TAB PO PRN (23:24)
--- NOTE | 2023-06-29 23:28 | Delivery Summary ---
Vaginal Delivery Summary Date of Service June 29, 2023 Vaginal Delivery Summary Pre-operative Diagnosis: at 39 5/7 ?srom hx of shoulder dystocia Post-operative Diagnosis: same Procedure: pitocin augmentation epidural fse small right labial laceration and repair EBL: 300cc Anesthesia: epidural Procedure: The patient progressed rapidly to c/c/+1. Baseline remained in 95- 105 range with spon accels and great variability. The patient pushed for two contractions to deliver a viable male in mau position. The rest of the infant was then delivered without difficulty. A loose nuchal cord x 1 was easily reduced prior to delivery of the shoulders. The baby was vigorous. The nose and mouth were again bulb suctioned and the was placed in the maternal abdomen for drying and attention. Cord was clamped and cut at one minute. Cord blood and segment obtained. Placenta delivered spontaneous, intact with a three vessel cord. Cervix/sulci/rectum were intact. A small right labial laceration was repaired in the normal standard fashion. Hemostasis obtained with dilute pitocin and fundal massage. Apgars were 8/9. Mother and baby doing well at the end of the delivery. [facility] Vaginal Delivery Charge Delivery Type Details:
[2023-06-30] MEDS: ACETAMINOPHEN 325 MG TAB PO PRN ×3 (02:36→21:24)
[2023-06-30] MEDS: IBUPROFEN 600 MG TAB PO PRN ×4 (05:23→20:38)
[2023-06-30 06:02] LABS: Hematocrit (blood only) 26.3 % (37.0-47.0)
--- NOTE | 2023-06-30 06:45 | Obstetrical Progress Note ---
Date of Service <Fernanda Byrd MD - Last Filed: 06/30/23 07:47> June 30, 2023 Assessment & Plan <Fernanda Byrd MD - Last Filed: 06/30/23 07:47> (1) Spontaneous vaginal delivery: Patient with the above mentioned history and findings was evaluated at bedside and found awake, alert, oriented in all spheres, afebrile, and in no acute distress. Overall, patient is doing well clinically. Will order iron supplements due to decreased Hb. Therefore, will encourage ambulation as tolerated and will resume regular diet. Will continue monitoring pain levels and management with current regimen. Patient is encouraged to breastfeed and to notify changes in normal lochia such as excessive bleeding (using more than 1 pad per hour), foul smell, or purulent appearance. Should she remain clinically and hemodynamically stable, will consider discharge tomorrow. All questions were answered. <Bernice Jacobson MD, FACOG - Last Filed: 06/30/23 07:53> (1) Spontaneous vaginal delivery: Subjective <Fernanda Byrd MD - Last Filed: 06/30/23 07:47> Chel is a 27 y/o female who is now PPD # 1 following at 39 5/7 weeks. Reports feeling well overall this morning. Refers mild abdominal cramping & 6/10 pain before analgesic administration. Voiding spontaneously without difficulty. Tolerating meals overnight and has not ambulated yet. She is passing gas but has not yet had a bowel movement. Some persistent lochia with some improvement this morning. . Her blood type is O positive and last Hb was 8.0. She denies any symptom of anemia such as lightheadedness, palpitations, SOB, or any other symptom. She is GBS negative and rubella immune. Constitutional: no fever, no chills or no sweats Denies shortness of breath or difficulty breathing Cardiovascular: no chest pain or no palpitations Breast: no breast pain Genitourinary (female): no dysuria Neurologic: no headache(s) Denies changes in vision Physical Exam <Fernanda Byrd MD - Last Filed: 06/30/23 07:47> General: Alert. Oriented to person, time, and place. Afebrile. No acute distress. Eyes: pupils equal and reactive to light bilaterally, extraocular movements intact. Cardiac: Regular rate and rhythm, no murmurs/rubs/gallops. Respiratory: Clear to auscultation bilaterally a/p, no wheezes/rales/rhonchi. No increased work of breathing. Symmetrical chest rise. No respiratory distress. Abdomen: Soft, nontender, nondistended. Bowel sounds present. Uterus: Uterine fundus firm, non-tender, and palpable below umbilicus. Lower Extremities: Mild swelling without pitting. No deep calf pain. Nay's negative bilaterally. Psych: Euthymic affect. Mood and affect congruence. Regular speech rate and content. Results & Data <Fernanda Byrd MD - Last Filed: 06/30/23 07:47> Vital Signs (Past 12 Hours) Vital Signs Temp Pulse Pulse Resp BP BP Pulse Ox 06/30/23 06:05 36.5 C 70 18 119/70 97 06/30/23 01:45 36.7 C 97 H 16 115/63 97 06/30/23 01:20 36.9 C 18 06/30/23 00:50 18 06/30/23 00:20 18 06/30/23 00:05 18 06/29/23 23:50 18 06/29/23 23:35 18 06/29/23 23:20 36.9 C 18 06/30/23 01:28 92 H 103/54 L 06/30/23 01:16 96 H 106/59 L 06/30/23 01:01 86 112/55 L 06/30/23 00:46 87 117/55 L 06/30/23 00:31 115/55 L 06/30/23 00:16 77 113/54 L 06/29/23 23:54 80 06/29/23 23:54 115/56 L 06/29/23 23:31 83 06/29/23 23:31 120/58 L 06/29/23 23:21 90 06/29/23 23:21 105/57 L 06/29/23 23:12 97 06/29/23 23:12 95 H 06/29/23 23:07 100 06/29/23 23:07 110 H 06/29/23 23:02 100 06/29/23 23:02 92 H 06/29/23 23:01 73 06/29/23 23:01 123/68 06/29/23 22:57 99 06/29/23 22:57 77 06/29/23 22:52 99 06/29/23 22:52 74 06/29/23 22:47 98 06/29/23 22:47 77 06/29/23 22:46 75 06/29/23 22:46 116/68 06/29/23 22:42 97 06/29/23 22:42 79 06/29/23 22:37 98 06/29/23 22:37 67 06/29/23 22:32 97 06/29/23 22:32 74 06/29/23 22:31 72 06/29/23 22:31 117/66 06/29/23 22:27 98 06/29/23 22:27 69 06/29/23 22:22 96 06/29/23 22:22 74 06/29/23 22:17 99 06/29/23 22:17 81 06/29/23 22:17 76 06/29/23 22:17 114/71 06/29/23 22:12 100 06/29/23 22:12 92 H 06/29/23 22:07 99 06/29/23 22:07 69 06/29/23 22:02 99 06/29/23 22:02 88 06/29/23 22:02 109/56 L 06/29/23 21:57 98 06/29/23 21:57 73 06/29/23 21:52 98 06/29/23 21:52 92 H 06/29/23 21:47 98 06/29/23 21:47 71 06/29/23 21:30 18 06/29/23 21:30 18 06/29/23 21:46 75 06/29/23 21:46 116/62 06/29/23 21:42 97 06/29/23 21:42 70 06/29/23 21:37 97 06/29/23 21:37 80 06/29/23 21:32 98 06/29/23 21:32 86 06/29/23 21:32 80 06/29/23 21:32 123/61 06/29/23 21:24 18 06/29/23 21:24 36.7 C 18 06/29/23 21:27 98 06/29/23 21:27 77 06/29/23 21:22 97 06/29/23 21:22 72 06/29/23 21:17 97 06/29/23 21:17 71 06/29/23 21:16 73 06/29/23 21:16 111/58 L 06/29/23 21:12 97 06/29/23 21:12 73 06/29/23 21:07 97 06/29/23 21:07 75 06/29/23 20:55 18 06/29/23 20:55 18 06/29/23 21:02 100 06/29/23 21:02 78 06/29/23 21:00 75 06/29/23 21:00 107/53 L 06/29/23 20:58 71 06/29/23 20:58 105/58 L 06/29/23 20:57 99 06/29/23 20:57 77 06/29/23 20:56 76 06/29/23 20:56 110/58 L 06/29/23 20:54 76 06/29/23 20:54 103/56 L 06/29/23 20:52 99 06/29/23 20:52 74 06/29/23 20:52 107/56 L 06/29/23 20:50 75 06/29/23 20:51 80 06/29/23 20:50 106/57 L 06/29/23 20:51 109/59 L 06/29/23 20:47 100 06/29/23 20:47 73 06/29/23 20:47 121/64 06/29/23 20:42 100 06/29/23 20:42 72 06/29/23 20:37 98 06/29/23 20:37 82 06/29/23 20:32 98 06/29/23 20:32 71 06/29/23 20:27 97 06/29/23 20:27 75 06/29/23 20:22 98 06/29/23 20:22 75 06/29/23 20:17 98 06/29/23 20:17 79 06/29/23 20:04 72 06/29/23 20:04 129/72 06/29/23 19:00 18 06/29/23 19:00 36.9 C 18 06/29/23 19:06 71 06/29/23 19:06 108/59 L O2 Del Method 06/30/23 06:05 Room Air 06/30/23 01:45 Room Air 06/30/23 01:20 06/30/23 00:50 06/30/23 00:20 06/30/23 00:05 06/29/23 23:50 06/29/23 23:35 06/29/23 23:20 06/30/23 01:28 06/30/23 01:16 06/30/23 01:01 06/30/23 00:46 06/30/23 00:31 06/30/23 00:16 06/29/23 23:54 06/29/23 23:54 06/29/23 23:31 06/29/23 23:31 06/29/23 23:21 06/29/23 23:21 06/29/23 23:12 06/29/23 23:12 06/29/23 23:07 06/29/23 23:07 06/29/23 23:02 06/29/23 23:02 06/29/23 23:01 06/29/23 23:01 06/29/23 22:57 06/29/23 22:57 06/29/23 22:52 06/29/23 22:52 06/29/23 22:47 06/29/23 22:47 06/29/23 22:46 06/29/23 22:46 06/29/23 22:42 06/29/23 22:42 06/29/23 22:37 06/29/23 22:37 06/29/23 22:32 06/29/23 22:32 06/29/23 22:31 06/29/23 22:31 06/29/23 22:27 06/29/23 22:27 06/29/23 22:22 06/29/23 22:22 06/29/23 22:17 06/29/23 22:17 06/29/23 22:17 06/29/23 22:17 06/29/23 22:12 06/29/23 22:12 06/29/23 22:07 06/29/23 22:07 06/29/23 22:02 06/29/23 22:02 06/29/23 22:02 06/29/23 21:57 06/29/23 21:57 06/29/23 21:52 06/29/23 21:52 06/29/23 21:47 06/29/23 21:47 06/29/23 21:30 06/29/23 21:30 06/29/23 21:46 06/29/23 21:46 06/29/23 21:42 06/29/23 21:42 06/29/23 21:37 06/29/23 21:37 06/29/23 21:32 06/29/23 21:32 06/29/23 21:32 06/29/23 21:32 06/29/23 21:24 06/29/23 21:24 06/29/23 21:27 06/29/23 21:27 06/29/23 21:22 06/29/23 21:22 06/29/23 21:17 06/29/23 21:17 06/29/23 21:16 06/29/23 21:16 06/29/23 21:12 06/29/23 21:12 06/29/23 21:07 06/29/23 21:07 06/29/23 20:55 06/29/23 20:55 06/29/23 21:02 06/29/23 21:02 06/29/23 21:00 06/29/23 21:00 06/29/23 20:58 06/29/23 20:58 06/29/23 20:57 06/29/23 20:57 06/29/23 20:56 06/29/23 20:56 06/29/23 20:54 06/29/23 20:54 06/29/23 20:52 06/29/23 20:52 06/29/23 20:52 06/29/23 20:50 06/29/23 20:51 06/29/23 20:50 06/29/23 20:51 06/29/23 20:47 06/29/23 20:47 06/29/23 20:47 06/29/23 20:42 06/29/23 20:42 06/29/23 20:37 06/29/23 20:37 06/29/23 20:32 06/29/23 20:32 06/29/23 20:27 06/29/23 20:27 06/29/23 20:22 06/29/23 20:22 06/29/23 20:17 06/29/23 20:17 06/29/23 20:04 06/29/23 20:04 06/29/23 19:00 06/29/23 19:00 06/29/23 19:06 06/29/23 19:06 <Bernice Jacobson MD, FACOG - Last Filed: 06/30/23 07:53> Co-Signing Physician Notes Resident Physician Supervision Note: I interviewed and examined the patient. Discussed with Dr. Byrd and agree with findings and plan as documented in the note. Any exceptions or clarifications are listed here: Doing well. routine care. Delivered at 11pm last night so will stay til tomorrow. Documented By: Bernice Jacobson MD, FACOG Resident Activity Tracking <Fernanda Byrd MD - Last Filed: 06/30/23 07:47> Resident Involvement: Resident Care Provided Care Provided: OB Delivery
[2023-06-30] MEDS: FERROUS SULFATE 325 MG TAB PO SCH ×2 (08:34→18:12)
[2023-06-30] MEDS: PRENATAL VITAMIN 1 TAB PO SCH (08:34)
[2023-06-30] MEDS: DOCUSATE SODIUM 100 MG CAP PO SCH ×2 (08:34→20:38)
--- NOTE | 2023-06-30 08:47 | Anesthesia Procedure Note ---
Date of Service June 30, 2023 Anesthesia Post Epidural Note Vital Signs Vital Signs: Temp Pulse Resp BP Pulse Ox O2 Del Method 36.5 C 70 18 119/70 97 Room Air 06/30/23 06:05 06/30/23 06:05 06/30/23 06:05 06/30/23 06:05 06/30/23 06:05 06/30/23 06:05 Pain Intensity Bilateral Abdomen: Pain Intensity: 5 Episiotomy/Laceration: Pain Intensity: 7 Notes Mental Status: alert / awake / arousable Nausea / Vomiting: adequately controlled Pain: adequately controlled Airway Patency, RR, SpO2: stable & adequate BP & HR: stable & adequate Hydration State: stable & adequate Neuraxial Anesthesia: was administered and sensory block is resolving Anesthetic Complications: no major complications apparent and Pt Satisfied with anesthetic care Epidural: Removed without complications and With tip intact
[2023-06-30] MEDS ORDERED: bisacodyL 5 MG TABEC PO SCH (20:00)
[2023-07-01] MEDS: IBUPROFEN 600 MG TAB PO PRN ×2 (00:05→06:06)
--- NOTE | 2023-07-01 06:46 | Obstetrical Progress Note ---
Date of Service <Fernanda Byrd MD - Last Filed: 07/01/23 07:31> July 01, 2023 Assessment & Plan <Fernanda Byrd MD - Last Filed: 07/01/23 07:31> (1) Spontaneous vaginal delivery: Patient with the above mentioned history and findings was evaluated at bedside and found clinically and hemodynamically stable, afebrile, awake, alert, oriented x3, and in no acute distress. Overall she seems stable and is fit to go home today. Discharge instructions were discussed. Her pain will be managed with Tylenol, Advil, or Motrin PRN. She is to call to schedule and appointment with her OB for 6 weeks after discharge for her follow up evaluation. All questions were answered. <Micheal Palencia MD - Last Filed: 07/01/23 07:53> (1) Spontaneous vaginal delivery: Subjective <Fernanda Byrd MD - Last Filed: 07/01/23 07:31> Chel is a 27 y/o female who is now PPD # 2 following at 39 5/7 weeks. Reports feeling well overall this morning. Refers mild abdominal cramping & 1/10 pain with adequate control with analgesics. Voiding spontaneously without difficulty. Tolerating meals overnight and ambulating well. She is passing gas but has not yet had a bowel movement. Some persistent lochia with some improvement this morning. . Her blood type is O positive and last Hb was 8.0. She denies any symptom of anemia such as lightheadedness, palpitations, SOB, or any other symptom. She is GBS negative and rubella immune. Constitutional: no fever, no chills or no sweats Denies shortness of breath or difficulty breathing Cardiovascular: no chest pain or no palpitations Breast: no breast pain Genitourinary (female): no dysuria Neurologic: no headache(s) Denies changes in vision Physical Exam <Fernanda Byrd MD - Last Filed: 07/01/23 07:31> General: Alert. Oriented to person, time, and place. Afebrile. No acute distress. Eyes: pupils equal and reactive to light bilaterally, extraocular movements intact. Cardiac: Regular rate and rhythm, no murmurs/rubs/gallops. Respiratory: Clear to auscultation bilaterally a/p, no wheezes/rales/rhonchi. No increased work of breathing. Symmetrical chest rise. No respiratory distress. Abdomen: Soft, nontender, nondistended. Bowel sounds present. Uterus: Uterine fundus firm, non-tender, and palpable below umbilicus. Lower Extremities: No lower extremity swelling or edema. No deep calf pain. Nay's negative bilaterally. Psych: Euthymic affect. Mood and affect congruence. Regular speech rate and content. Results & Data <Fernanda Byrd MD - Last Filed: 07/01/23 07:31> Vital Signs (Past 12 Hours) Vital Signs Temp Pulse Resp BP Pulse Ox O2 Del Method 07/01/23 00:00 36.8 C 58 L 16 115/67 96 Room Air 06/30/23 20:45 36.7 C 68 16 117/74 98 Room Air 06/30/23 18:51 36.6 C 76 18 108/62 98 Room Air <Micheal Palencia MD - Last Filed: 07/01/23 07:53> Co-Signing Physician Notes Patient seen with resident and agree with the above findings and plan. Stable f or discharge Resident Activity Tracking <Fernanda Byrd MD - Last Filed: 07/01/23 07:31> Resident Involvement: Resident Care Provided Care Provided: OB Delivery
[2023-07-01] MEDS: PRENATAL VITAMIN 1 TAB PO SCH (08:18)
[2023-07-01] MEDS: DOCUSATE SODIUM 100 MG CAP PO SCH (08:18)
[2023-07-01] MEDS: FERROUS SULFATE 325 MG TAB PO SCH (08:18)
== END 2023-07-01 11:45 | disposition home or self-care (01) | DRG 807 ==
LOC: OPB 16:29 → 4S1 16:30 → 4E2 06-30 01:49